=== PATIENT | male | born 1940 | race American Indian/Alaskan Native ===

== ENCOUNTER 2018-12-25 12:04 | Inpatient (IN) | payer MEDICARE ==
--- NOTE | 2018-12-25 12:27 | Cat Scan Report ---
PROCEDURE: CT HEAD/BRAIN WO CON TECHNIQUE: CT examination of the head without IV contrast HISTORY: neuro deficits <6hrs or sx present upon awakening COMPARISONS: None FINDINGS: Cerebrovascular atherosclerotic calcification is present in the skull base arteries. Chronic appearing lacunar infarct left basal ganglia. No acute air-fluid level visualized in the included air-filled sinuses. Bone windows demonstrate no acute fracture. There is ventricular and sulcal prominence compatible with global cerebrocortical atrophy. Low attenuation regions in the cerebral white matter, while nonspecific, are present and usually attr ibuted to chronic ischemic gliosis. It can occur secondary to the normal aging process, hypertension, or arterial sclerotic vascular dise ase. The differential includes demyelination in the appropriate clinical setting. The brain contains no mass, mass effect, hemorrhage, or acute infarct. There is no extra-axial intracranial bleed or brain bleed. There is no midline shift. IMPRESSION: No acute CVA, intracranial bleed, or brain mass Chronic appearing lacunar infarct left basal ganglia Cerebrovascular atherosclerosis This document is electronically signed by Conner Cancino MD., December 25 2018 12:25:15 PM ET
[2018-12-25 12:34] LABS: Basophils # (Auto) 0.1 K/mm3 (0.0-0.1); Basophils % (Auto) 1.1 % (0.0-1.8); Eosinophils % (Auto) 0.2 % (0.0-4.3); Hematocrit 44.4 % (35.5-45.6); Hemoglobin 15.4 gm/dl (11.8-15.2); Lymphocytes # (Auto) 1.9 K/mm3 (1.2-5.4); Lymphocytes % (Auto) 28.4 % (13.4-35.0); Mean Corpuscular HGB Conc 35 % (32-34); Mean Corpuscular Volume 94 fl (84-94); Monocytes # (Auto) 0.5 K/mm3 (0.0-0.8); Monocytes % (Auto) 7.5 % (0.0-7.3); Platelet Count 182 K/mm3 (140-440); Red Blood Count 4.72 M/mm3 (3.65-5.03); Red Cell Distribution Width 13.8 % (13.2-15.2)
[2018-12-25 12:44] LABS: INR 0.95 (0.87-1.13)
[2018-12-25 12:45] LABS: Thrombin Time 17.2 Sec. (15.1-19.6)
--- NOTE | 2018-12-25 12:46 | Emergency Department Report ---
ED Neuro Deficit HPI - General Stated Complaint: POSS CVA Time Seen by Provider: 12/25/18 12:14 - History of Present Illness Initial Comments: This is a 78-year-old man that was found in his truck. Apparently he is vomited his food. A stroke protocol was called by medics because neighbors stated that he (the patient) is not acting right. According to neighbors he has been "like this since last night". When I asked the medics exactly what the neighbors were referring to the stated they did not ask. They noted that the patient was not responding properly to them when they arrived. They did not identify focal weakness nor facial paresis, although the patient does have a grade 1 facial paresis on his arrival. Medics state that he is "speaking better now". Exactly what his stroke symptoms are and how acute ER is really uncertain. The patient himself is able to tell me that he "got hot in his truck". He does not seem to have complete recall of the episode. He has no history of stroke or seizure. He does realize that the medics took him to this facility for evaluation of a possible stroke. He is denying any lateralizing weakness. He is denying facial weakness or numbness. He denies any visual change. He denies headache. At this juncture the patient has a negative CT. I have discussed the case with the stroke neurologist at [facility] Dr. Bud Aragon. He agreed with CT angiography and stated that he would be available to read this study on the PACS if there are any delays here locally. -: unknown (either this morning or last night and recurrently this morning) Location: speech, left face History of same: No Place: home Severity: mild, moderate Improves With: time Worsens With: none On Anticoagulants: No Context: other (unknown onset) Associated Symptoms: nausea/vomiting Treatments Prior to Arrival: none - Related Data Allergies/Adverse Reactions: Allergies Allergy/AdvReac Type Severity Reaction Status Date / Time No Known Allergies Allergy Unverified 12/25/18 12:06 ED Review of Systems ROS: Stated complaint: POSS CVA Other details as noted in HPI Constitutional: denies: chills, fever Eyes: denies: eye pain, eye discharge, vision change ENT: denies: ear pain, throat pain Respiratory: denies: cough, shortness of breath, wheezing Cardiovascular: denies: chest pain, palpitations Endocrine: no symptoms reported Gastrointestinal: denies: abdominal pain, nausea, diarrhea Genitourinary: denies: urgency, dysuria Musculoskeletal: denies: back pain, joint swelling, arthralgia Skin: denies: rash, lesions Neurological: as per HPI. denies: headache, weakness, paresthesias Psychiatric: denies: anxiety, depression Hematological/Lymphatic: denies: easy bleeding, easy bruising ED Past Medical Hx - Past Medical History Hx Hypertension: Yes - Social History Substance Use Type: None ED Neuro Physical Exam - General General appearance: alert, in no apparent distress Suspected Stroke: Yes - Head Head exam: Present: atraumatic, normocephalic - Eye Eye exam: Present: normal appearance - ENT ENT exam: Present: mucous membranes moist, other (positive facial asymmetry left sided) - Neck Neck exam: Present: normal inspection - Respiratory Respiratory exam: Present: normal lung sounds bilaterally. Absent: respiratory distress - Cardiovascular Cardiovascular Exam: Present: regular rate, normal rhythm. Absent: systolic murmur, diastolic murmur, rubs, gallop - GI/Abdominal GI/Abdominal exam: Present: soft, normal bowel sounds. Absent: distended, tend erness, guarding, rebound, rigid - Rectal Rectal exam: Present: deferred - Extremities Exam Extremities exam: Present: normal inspection - Back Exam Back exam: Present: normal inspection - Neurological Exam Neurological exam: Present: alert, oriented X3 - NIHSS Assessment Interval: Baseline 1a. Level of Consciousness: alert/keenly responsive 1b. LOC Questions: answers both correctly 1c. LOC Commands: performs tasks correctly 2. Best Gaze: normal 3. Visual: no visual loss 4. Facial Palsy: minor paralysis 5b. Motor Arm Right: no drift 5a. Motor Arm Left: no drift 6a. Motor Leg Left: no drift 6b. Motor Leg Right: no drift 7. Limb Ataxia: absent 8. Sensory: normal 9. Best Language: no aphasia 10. Dysarthria: normal 11. Extinction/Inattention: no abnormality Total Score: 1 Stroke Severity: Minor Stroke - Psychiatric Psychiatric exam: Present: normal affect, normal mood - Skin Skin exam: Present: warm, dry, intact, normal color. Absent: rash ED Course Vital Signs 12/25/18 12:05 Temperature 98.3 F Pulse Rate 92 H Respiratory 18 Rate Blood Pressure 116/85 O2 Sat by Pulse 99 Oximetry - Reevaluation(s) Reevaluation #1: I spoke with teleneurology here. They're going to take a look at the patient as well. They agree the patient is not a TPA candidate as his symptoms are by history "since last night"at or about 9 PM. His NIH stroke score is 1 on reevaluation. 12/25/18 13:03 Reevaluation #2: CT has declined doing CT angiography because of the creatinine of 1.5. I will defer further medical decision making a the hospitalist and neurology consultation. 12/25/18 13:34 Reevaluation #3: Patient referred to Dr. Phillips. 12/25/18 14:49 - Lab Data Result diagrams: 12/25/18 12:23 12/25/18 12:19 Lab Results 12/25/18 12/25/18 12/25/18 Range/Units 12:19 12:23 12:24 WBC 6.8 (4.5-11.0) K/mm3 RBC 4.72 (3.65-5.03) M/mm3 Hgb 15.4 H (11.8-15.2) gm/dl Hct 44.4 (35.5-45.6) % MCV 94 (84-94) fl MCH 33 H (28-32) pg MCHC 35 H (32-34) % RDW 13.8 (13.2-15.2) % Plt Count 182 (140-440) K/mm3 Lymph % (Auto) 28.4 (13.4-35.0) % [place] % (Auto) 7.5 H (0.0-7.3) % Eos % (Auto) 0.2 (0.0-4.3) % Baso % (Auto) 1.1 (0.0-1.8) % Lymph # 1.9 (1.2-5.4) K/mm3 [place] # 0.5 (0.0-0.8) K/mm3 Eos # 0.0 (0.0-0.4) K/mm3 Baso # 0.1 (0.0-0.1) K/mm3 Seg Neutrophils % 62.8 (40.0-70.0) % Seg Neutrophils # 4.3 (1.8-7.7) K/mm3 PT 13.3 (12.2-14.9) Sec. INR 0.95 (0.87-1.13) Thrombin Time 17.2 (15.1-19.6) Sec. Sodium 141 (137-145) mmol/L Potassium 4.0 (3.6-5.0) mmol/L Chloride 104.0 (98-107) mmol/L Carbon Dioxide 23 (22-30) mmol/L Anion Gap 18 mmol/L BUN 22 H (9-20) mg/dL Creatinine 1.5 (0.8-1.5) mg/dL Estimated GFR 55 ml/min BUN/Creatinine Ratio 15 % Glucose 124 H (75-100) mg/dL Calcium 9.2 (8.4-10.2) mg/dL Troponin T < 0.010 (0.00-0.029) ng/mL Laboratory Results - last 24 hr 12/25/18 12/25/18 12/25/18 12:19 12:23 12:24 WBC 6.8 RBC 4.72 Hgb 15.4 H Hct 44.4 MCV 94 MCH 33 H MCHC 35 H RDW 13.8 Plt Count 182 Lymph % (Auto) 28.4 [place] % (Auto) 7.5 H Eos % (Auto) 0.2 Baso % (Auto) 1.1 Lymph # 1.9 [place] # 0.5 Eos # 0.0 Baso # 0.1 Seg Neutrophils % 62.8 Seg Neutrophils # 4.3 PT 13.3 INR 0.95 Thrombin Time 17.2 Sodium 141 Potassium 4.0 Chloride 104.0 Carbon Dioxide 23 Anion Gap 18 BUN 22 H Creatinine 1.5 Estimated GFR 55 BUN/Creatinine Ratio 15 Glucose 124 H Calcium 9.2 Troponin T < 0.010 - EKG Data -: EKG Interpreted by Mi Rate: normal Interpretation: other (first degree AV block no evidence for acute ischemia) - Radiology Data Radiology results: report reviewed (chest x-ray no acute process) FINDINGS: Cerebrovascular atherosclerotic calcification is present in the skull base arteries. Chronic appearing lacunar infarct left basal ganglia. No acute air-fluid level visualized in the included air-filled sinuses. Bone windows demonstrate no acute fracture. There is ventricular and sulcal prominence compatible with global cerebrocortical atrophy. Low attenuation regions in the cerebral white matter, while nonspecific, are present and usually attributed to chronic ischemic gliosis. It can occur secondary to the normal aging process, hypertension, or arterial sclerotic vascular disease. The differential includes demyelination in the appropriate clinical setting. The brain contains no mass, mass effect, hemorrhage, or acute infarct. There is no extra-axial intracranial bleed or brain bleed. There is no midline shift. IMPRESSION: No acute CVA, intracranial bleed, or brain mass Chronic appearing lacunar infarct left basal ganglia Cerebrovascular atherosclerosis Critical Care Time: Yes Critical care time in (mins) excluding proc time.: 60 Critical care attestation.: If time is entered above; I have spent that time in minutes in the direct care of this critically ill patient, excluding procedure time. ED Disposition Clinical Impression: TIA (transient ischemic attack), Renal insufficiency, mild Disposition: DC-09 OP ADMIT IP TO THIS HOSP Is pt being admited?: Yes Does the pt Need Aspirin: Yes Condition: Stable Referrals: PRIMARY CARE, [Primary Care Provider] - 3-5 Days Time of Disposition: 14:48
[2018-12-25 12:52] LABS: BUN/Creatinine Ratio 15; Blood Urea Nitrogen 22 mg/dL (9-20); Calcium 9.2 mg/dL (8.4-10.2); Hemolysis Index 4
[2018-12-25] MEDS ORDERED: ASPIRIN PO ONE (14:48)
--- NOTE | 2018-12-25 15:02 | XRay Report ---
PROCEDURE: XR CHEST 1V AP TECHNIQUE: AP portable view of the chest HISTORY: hypertension COMPARISONS: None FINDINGS: There is degenerative spondylosis of the thoracic spine. There is no pulmonary consolidation. No evidence of pleural effusion. No radiographically visible pneumothorax. Cardiac silhouette size is within normal limits. No radiographic evidence of vascular congestion. IMPRESSION: No radiographic evidence of definite acute pulmonary disease This document is electronically signed by Conner Cancino MD., December 25 2018 01:46:06 PM ET
--- NOTE | 2018-12-25 15:08 | Emergency Department Report ---
ED Neuro Deficit HPI - General Chief Complaint: Neuro Symptoms/Deficit Stated Complaint: POSS CVA Time Seen by Provider: 12/25/18 12:14 Source: EMS Mode of arrival: Stretcher Limitations: Physical Limitation - History of Present Illness Initial Comments: [facility] TeleStroke Metrics: LKW: Last night Door Time: 1204 [facility] Contacted: 1244 [facility] at Bedside: 1254 NIHSS: 1305 Decision on Alteplase: Not to give as his LKW time was yesterday. Interventional Candidate: Not a candidate as his symptoms are not consistent with a large vessel proximal occlusion. Chief Complaint: AMS HPI: Asked to see this patient in telemedicine consultation. ?Consultation was performed with assistance of ancillary / medical staff at bedside. ? Verbal consent to perform the examination with telemedicine was obtained. Patient agreed to proceed with the consultation. 78-year-old right-handed -[place] male who was brought to the ER by EMS after being found with altered mental status in his truck. Patient currently does not take any aspirin. According to the ER team, EMS had spoken with the neighbors and they noted that he was confused and not talking appropriately last night. Patient states that he was with them around 9 PM. He overall feels like he has had no issues. He recalls this morning having to start his truck, but noted a battery. At some point, EMS was called and the patient was found in his truck not responding or talking appropriately. By the time he came to the ER, he was back to his baseline. He was only noted to have a mild left facial droop. Head CT was negative. He denies any associated chest pain or headaches. He is never had this happen before. PMH: Hypertension SOC: Positive for tobacco abuse. Negative for alcohol abuse or illicit drug use. Patient lives alone. FMH: Negative for stroke. ROS: 13 point review of systems were reviewed with the patient, and are all negative with the exception of the aforementioned in the history of present illness. VS: Blood pressure 140/93, pulse 94, respiration 12, oxygen saturation 100% Exam: Patient is in no apparent distress. Patient appears as stated age. No obvious acute respiratory or cardiac distress. Patient is well groomed and well-nourished. 1a- LOC: Keenly responsive - 0 1b- LOC questions: Answers both questions correctly - 0 1c- LOC commands- Performs both tasks correctly- 0 2- Gaze: Normal; no gaze paresis or gaze deviation - 0 3- Visual Holman: normal, no Visual field deficit - 0 4- Facial movements: left facial palsy - 1 5- Upper limb motor - no drift - 0 6- Lower limb motor - no drift - 0 7- Limb Coordination: absent ataxia - 0 8- Sensory: no sensory loss - 0 9- Language - No aphasia - 0 10- Speech - No dysarthria -0 11- Neglect / Extinction - none found - 0 NIHSS score: 1 Diagnostic Data: WBC 6.8, hemoglobin 50.4, platelets 182, white elation studies within normal limits, sodium 141, potassium 4, BUN 22, creatinine 1.5, blood glucose 124 CT of the head showed no acute intracranial process. Medical Data Reviewed: 1.Data?reviewed include clinical labs, radiology,?and medical tests; 2.Tests?results discussed w/performing or interpreting physician; 3.Obtaining/reviewing old medical records;? 4.Obtaining?case history from another source;? 5.Independent?review of image, tracing, or specimen.? Medical Decision Making: - Extensive number of diagnosis or management options are considered below. - Extensive amount of complex data reviewed.?? - High risk of complication and/or morbidity or mortality are associated with differential diagnostic considerations below.? - There may be?uncertain?outcome and increased probability of prolonged functional impairment or high probability of severe prolonged functional impairment associated with some of these differential diagnosis.? Differential Diagnosis for Stroke: 1.?Cardioembolic?stroke? 2. Small vessel disease/lacune? 3. Thromboembolic, [id number] mechanism? 4.?Hypercoagulable?state-related infarct? 5. Transient ischemic attack? 6. Thrombotic mechanism, large artery disease? Assessment: 1. Acute encephalopathy. Possible stroke versus seizure. 2. Hypertension 3. Tobacco abuse Recommendations: Patient can be admitted to the hospital for further workup of his symptoms. Metabolic and infectious workup per primary team. Patient is getting a CTA of the head and neck currently. Check MRI of the brain to rule out any acute intracranial process. To consider an EEG to rule out subclinical seizure. Consult local neurology team to assist with evaluation and management. Continue supportive. Thank you for allowing [facility] to participate in the care of your patient. Please call me, Dr. Messer, with any questions at [phone]. Case discussed with the ER staff and Dr. Garcia. Critical Care notation: I was called to see this critical patient emergently. I personally evaluated this critical patient for acute stroke evaluation, and determining their eligibility for IV Alteplase and interventional therapies. I have spent approximately 14 minutes with the patient, including time at bedside, time discussing the case with other physicians, reviewing plan of care, and time independently reviewing the records and scans. Location: speech, left face History of same: No Place: home Severity: mild, moderate Improves With: time Worsens With: none On Anticoagulants: No Treatments Prior to Arrival: none - Related Data Allergies/Adverse Reactions: Allergies Allergy/AdvReac Type Severity Reaction Status Date / Time No Known Allergies Allergy Unverified 12/25/18 12:06 ED Review of Systems ROS: Stated complaint: POSS CVA Other details as noted in HPI Constitutional: denies: chills, fever Eyes: denies: eye pain, eye discharge, vision change ENT: denies: ear pain, throat pain Respiratory: denies: cough, shortness of breath, wheezing Cardiovascular: denies: chest pain, palpitations Endocrine: no symptoms reported Gastrointestinal: denies: abdominal pain, nausea, diarrhea Genitourinary: denies: urgency, dysuria Musculoskeletal: denies: back pain, joint swelling, arthralgia Skin: denies: rash, lesions Neurological: as per HPI. denies: headache, weakness, paresthesias Psychiatric: denies: anxiety, depression Hematological/Lymphatic: denies: easy bleeding, easy bruising ED Past Medical Hx - Past Medical History Hx Hypertension: Yes - Social History Substance Use Type: None ED Neuro Physical Exam - General Limitations: Physical Limitation General appearance: alert, in no apparent distress Suspected Stroke: Yes - NIHSS Assessment Interval: Baseline 1a. Level of Consciousness: alert/keenly responsive 1b. LOC Questions: answers both correctly 1c. LOC Commands: performs tasks correctly 2. Best Gaze: normal 3. Visual: no visual loss 4. Facial Palsy: minor paralysis 5b. Motor Arm Right: no drift 5a. Motor Arm Left: no drift 6a. Motor Leg Left: no drift 6b. Motor Leg Right: no drift 7. Limb Ataxia: absent 8. Sensory: normal 9. Best Language: no aphasia 10. Dysarthria: normal 11. Extinction/Inattention: no abnormality Total Score: 1 Stroke Severity: Minor Stroke ED Course Vital Signs 12/25/18 12:05 Temperature 98.3 F Pulse Rate 92 H Respiratory 18 Rate Blood Pressure 116/85 O2 Sat by Pulse 99 Oximetry - Lab Data Result diagrams: 12/25/18 12:23 12/25/18 12:19 Lab Results 12/25/18 12/25/18 12/25/18 Range/Units 12:19 12:23 12:24 WBC 6.8 (4.5-11.0) K/mm3 RBC 4.72 (3.65-5.03) M/mm3 Hgb 15.4 H (11.8-15.2) gm/dl Hct 44.4 (35.5-45.6) % MCV 94 (84-94) fl MCH 33 H (28-32) pg MCHC 35 H (32-34) % RDW 13.8 (13.2-15.2) % Plt Count 182 (140-440) K/mm3 Lymph % (Auto) 28.4 (13.4-35.0) % [place] % (Auto) 7.5 H (0.0-7.3) % Eos % (Auto) 0.2 (0.0-4.3) % Baso % (Auto) 1.1 (0.0-1.8) % Lymph # 1.9 (1.2-5.4) K/mm3 [place] # 0.5 (0.0-0.8) K/mm3 Eos # 0.0 (0.0-0.4) K/mm3 Baso # 0.1 (0.0-0.1) K/mm3 Seg Neutrophils % 62.8 (40.0-70.0) % Seg Neutrophils # 4.3 (1.8-7.7) K/mm3 PT 13.3 (12.2-14.9) Sec. INR 0.95 (0.87-1.13) Thrombin Time 17.2 (15.1-19.6) Sec. Sodium 141 (137-145) mmol/L Potassium 4.0 (3.6-5.0) mmol/L Chloride 104.0 (98-107) mmol/L Carbon Dioxide 23 (22-30) mmol/L Anion Gap 18 mmol/L BUN 22 H (9-20) mg/dL Creatinine 1.5 (0.8-1.5) mg/dL Estimated GFR 55 ml/min BUN/Creatinine Ratio 15 % Glucose 124 H (75-100) mg/dL Calcium 9.2 (8.4-10.2) mg/dL Troponin T < 0.010 (0.00-0.029) ng/mL Critical care attestation.: If time is entered above; I have spent that time in minutes in the direct care of this critically ill patient, excluding procedure time. ED Disposition Clinical Impression: Renal insufficiency, mild, Encephalopathy acute, TIA (transient ischemic attack) Disposition: OP ADMIT IP TO THIS HOSP Is pt being admited?: Yes Instructions: Self Care Measures After a Stroke (ED), Transient Ischemic Attack (ED) Referrals: PRIMARY CARE, [Primary Care Provider] - 3-5 Days Print Language: LITHUANIAN
--- NOTE | 2018-12-25 17:02 | History and Physical Report ---
History of Present Illness Date of examination: 12/25/18 Date of admission: 12/25/18 15:16 Chief complaint: Toes pains and unable to walk since last night History of present illness: Patient is a 78 yo man with a history of hypertension and tobacco dependency who presented with AMS, although he complains of bilateral throbbing, intermittent, mild, non radiating bilateral big toe pains and inability to walk since last night. The episode was intermittent but details are vague. According to the chart and sister herminio Krishnan, he was found in his truck, confused. He apparently vomited on himself. He is a poor historian, his recall of events is impairment. This is all new according to his family at bedside. He usually drives and full orientated. He is denying any focus weakness, headaches, facial weakness or numbness, visual change, headache, chest pains, syncope, fever, chills, abdominal pains. Teleneurology used, not candidate for tPA due to last time known normal is not known. PMH: as hpi PSH: Right TKR SH: 1/2 tobacco cigs/day, denies etoh or drug use, not , 1 daughter in [facility], lives alone, retired from [employer]: hypertension ROS: Constitutional: denies: fever ENT: denies: throat or neck pain Respiratory: denies: cough, shortness of breath Cardiovascular: denies: chest pain Endocrine: denies unexplained weight loss or gain Gastrointestinal: denies: abdominal pain, nausea Genitourinary: denies: dysuria Rectal: denies no incontinence, no bleeding, no itching, no discharge Musculoskeletal: denies swelling, myaglia, muscle weakness Skin: denies: rash Neurological: denies: headache Hematological/Lymphatic: denies: easy bleeding or easy bruising Allergic/Immunologic: no urticaria, no allergic rhinitis, no anaphylaxis Psych: denies sadness or hopelessness, SI/HI Medications and Allergies Allergies Allergy/AdvReac Type Severity Reaction Status Date / Time No Known Allergies Allergy Unverified 12/25/18 12:06 Exam - Physical Exam Narrative exam: GEN: WDWN, NAD, Awake, Alert, Orientated but poor 5 minute recall test HEENT: NCAT, EOMI, PERRL, OP Clear NECK: supple, no adenopathy, no thyromegaly, no JVD CVS/HEART: RRR, normal S1S2, pulses present bilaterally CHEST/LUNGS: CTA B, Symmetrical chest expansion, good air entry bilaterally GI/Abdomen: soft, NTND, good bowel sounds, no guarding or rebound /Bladder: no suprapubic tenderness, no CVA or paraspinal tenderness EXT/Skin: no c/c/e, no obvious rash MSK: FROM x 4 Neuro: CN 2-12 grossly intact, no new focal deficits Psych: calm - Constitutional Vitals: Temp Pulse Resp BP Pulse Ox 98.5 F 89 18 129/82 99 12/25/18 15:37 12/25/18 15:37 12/25/18 15:37 12/25/18 15:37 12/25/18 15:37 Results - Labs CBC & Chem 7: 12/25/18 12:23 12/25/18 12:19 Labs: Abnormal lab results 12/25/18 12/25/18 Range/Units 12:19 12:23 Hgb 15.4 H (11.8-15.2) gm/dl MCH 33 H (28-32) pg MCHC 35 H (32-34) % [place] % (Auto) 7.5 H (0.0-7.3) % BUN 22 H (9-20) mg/dL Glucose 124 H (75-100) mg/dL Assessment and Plan Patient is a 78 yo man with a history of hypertension and tobacco dependency who presented with AMS, although he complains of bilateral throbbing, intermittent, mild, non radiating bilateral big toe pains and inability to walk since last night. The episode was intermittent but details are vague. According to the chart and sister herminio Krishnan, he was found in his truck, confused. He apparently vomited on himself. He is a poor historian, his recall of events is impairment. This is all new according to his family at bedside. He usually drives and full orientated. He is denying any focus weakness, headaches, facial weakness or numbness, visual change, headache, chest pains, syncope, fever, chills, abdominal pains. Teleneurology used, not candidate for tPA due to last t walter known normal is not known. There was report of left facial asymmetry and possible slurred speech per EMS report that has resolved * CT head without contrast IMPRESSION: No acute CVA, intracranial bleed, or brain mass Chronic appearing lacunar infarct left basal ganglia Cerebrovascular atherosclerosis * pCXR IMPRESSION: No radiographic evidence of definite acute pulmonary disease -Acute encephalopathy. Possible TIA vs stroke versus seizure. Consult Neurology, use Stroke protocol -Bilateral big toe pains and Ambulatory dysfunction, resolved: Evaluate for stroke -?Nausea/vomiting: monitor closely, pt asking for food, use anti-emetics prn -ARF, vasomotor nephropathy suspected, no baseline known: monitor bmp closely, treat with IVF -Hypertension: continue antihypertensives (pt doesn't remember his 2 bp meds) -Tobacco dependency: budget counselor on stopping, offered nicotine patch -DVT prophylaxis: sq heparin -Home reconciliation not done, pt doesn't know medications or pharmacy
[2018-12-25] MEDS ORDERED: NORMODYNE IV PRN (17:08)
[2018-12-25] MEDS ORDERED: SENOKOT PO PRN (17:08)
[2018-12-25] MEDS ORDERED: TYLENOL PO PRN (17:08)
[2018-12-25] MEDS ORDERED: SODIUM CHLORIDE FLUSH SYRINGE 10 ML IV PRN (17:08)
[2018-12-25] MEDS ORDERED: ZOFRAN IV PRN (17:08)
[2018-12-25] MEDS ORDERED: ASPIRIN ONE (18:13)
--- NOTE | 2018-12-25 18:33 | Vascular Lab Report ---
PROCEDURE: VL CAROTID DUPLEX BILAT HISTORY: stroke FINDINGS: Real-time ultrasound of the cervical arterial vasculature was performed using grayscale and color Doppler images. These images demonstrate that peak systolic velocity in the right common carotid artery was 79 cm/s. In the internal carotid it was 41 cm/s and in the external carotid 103 cm/s. Flow in the vertebral ar holly was antegrade at 47 cm/s. The ratio of flow of the internal carotid to the common carotid was 0. 53 which is normal. On the left, peak systolic velocity common carotid artery was 93 cm/s. In the internal carotid it was 53 cm/s and in the external carotid 46 cm/s. Flow in the vertebral is antegrade at 36 cm/s. The rati o of flow of the internal carotid to the common carotid was 0.58 which is within normal limits. IMPRESSION: No stenosis of greater than 50% is seen in the cervical arterial vasculature This document is electronically signed by Emeka Rivera MD., December 25 2018 06:31:12 PM ET
--- NOTE | 2018-12-25 21:22 | Progress Note ---
Subjective Date of service: 12/25/18 Interval history: Thanks for consult the patient uis seen and definitely sounds like a stroke CT shows area in the left deep basal ganglia of extensive prior strokes mosrtly lacunar no blee noted advise stroke work up ie ECHO the carotid does not show occlusive disease of surgical significance labs reviewed ar basically OK he is very confusion and had mild delirium which is c/w the presenting hx will follow up Objective - Vital Sign Vital Signs - 12hr 12/25/18 12/25/18 12/25/18 12:05 12:52 13:53 Temperature 98.3 F 98.3 F Pulse Rate 92 H 88 89 Respiratory 18 18 18 Rate Blood Pressure 116/85 Blood Pressure 140/93 115/62 [Right] O2 Sat by Pulse 99 98 99 Oximetry 12/25/18 12/25/18 12/25/18 15:37 15:41 15:46 Temperature 98.5 F Pulse Rate 89 86 Respiratory 18 11 L 10 L Rate Blood Pressure 130/82 Blood Pressure 129/82 [Right] O2 Sat by Pulse 99 100 100 Oximetry 12/25/18 12/25/18 12/25/18 16:00 16:16 16:30 Temperature Pulse Rate 89 94 H 93 H Respiratory 21 14 12 Rate Blood Pressure 130/82 130/82 130/82 Blood Pressure [Right] O2 Sat by Pulse 98 99 100 Oximetry 12/25/18 12/25/18 12/25/18 16:46 17:00 17:16 Temperature Pulse Rate 96 H 90 90 Respiratory 17 21 18 Rate Blood Pressure 155/109 130/82 130/82 Blood Pressure [Right] O2 Sat by Pulse 100 100 99 Oximetry 12/25/18 12/25/18 12/25/18 17:30 17:46 18:00 Temperature Pulse Rate 84 84 83 Respiratory 12 17 11 L Rate Blood Pressure 132/85 123/86 123/86 Blood Pressure [Right] O2 Sat by Pulse 100 100 100 Oximetry - Laboratory Findings CBC and BMP: 12/25/18 12:23 12/25/18 12:19 Abnormal Lab Findings: Abnormal Labs 12/25/18 12/25/18 12:19 12:23 Hgb 15.4 H MCH 33 H MCHC 35 H [place] % (Auto) 7.5 H BUN 22 H Glucose 124 H
[2018-12-25] MEDS: PEPCID PO SCH (22:49)
[2018-12-25] MEDS: HABITROL TD SCH (22:50)
--- NOTE | 2018-12-26 02:39 | Consultation ---
HISTORY OF PRESENT ILLNESS: This is a 78-year-old black male that was admitted to [facility] on 12/25/2018. The patient presented to the Emergency Room with an onset of being found in his truck by neighbors. Apparently, he had vomiting his food, he has had confusion, was not acting right according to his neighbors and seemed to be not responding properly when they arrive. When he was evaluated in the Emergency Room, he did not have any focal paresis or any facial weakness, although the patient was thought to have some slurred speech. Medics, who initially picked him up, stated he was speaking better at the time of transport to the hospital. He is not clear exactly what his stroke symptoms were. When he was seen in the Emergency Room acutely, he do not describe exactly what happened, although he states he got hot in his truck and cannot recall what happened. When I am seeing him now, he has a very vague history. There are no family members present. He had gotten up earlier and had some problems with urinating on the floor and was quite confused. The patient does seem still be confused at this time. He had a creatinine of 1.5 and therefore, a CTA was not able to be done and the patient was not thought to be a TPA candidate given the fact he was not sure when exactly his symptoms came on. His electrolytes were checked. He had a creatinine of 1.4, glucose of 124, sodium of 141, potassium of 4.0 and the patient's BUN was slightly elevated at 22. Chest x-ray did not show any acute findings. My review of the head CT reveals atherosclerotic changes in the vessels, the base including the vertebrals. There is some movement artifact and there is a quite very clear cut infarct in the globus pallidus too on the left side, which is anterior and a small infarct in the medial globus pallidus, which are very chronic in appearance and there is a large area of white matter change in the left hemisphere adjacent to these areas of infarct in the globus pallidus. The cerebellum has normal appearance. Remainder of the CT scan does not show any evidence of any bleed or any other acute changes. On seeing the patient, he is alert, but very confused, unable to provide much of a history. He seems slightly agitated at times and is not able to follow many commands except very simple commands such as stay in bed. I cannot test his memory, although he does give me his name, does know he is in the hospital and he can follow simple commands at this point. I do not see any focal seizure activity. He does have a great degree of restlessness noted on examination, which at times with some tremulousness of the right arm. IMPRESSION: Prior history of acute stroke in the left hemisphere, chronic. He has no stenosis in his cervical arterial vasculature. He may have had a seizure. I certainly think that given his age, he has had prior strokes, may have some degree of dementia. I did review the radiology report of the CT and they describe as well the chronic infarcts in the left deep basal ganglia, which are confluent and certainly additional strokes in this region could produce confusion and dysarthria, particularly in the thalamus, which would lead to type of delirium. PLAN: MRI scan of brain, echocardiogram, possibility of early infection such as UTI should also be considered. JOB# [id number] ROSINA/KERRY
[2018-12-26 08:46] LABS: Hematocrit 41.8 % (35.5-45.6); Hemoglobin 14.3 gm/dl (11.8-15.2); Mean Corpuscular HGB Conc 34 % (32-34); Mean Corpuscular Volume 95 fl (84-94); Platelet Count 157 K/mm3 (140-440)
[2018-12-26 09:14] LABS: BUN/Creatinine Ratio 18; Blood Urea Nitrogen 21 mg/dL (9-20); Hemolysis Index 6; LDL Cholesterol,Direct 137 mg/dL (50-130)
[2018-12-26 09:27] LABS: Chol/HDL Ratio 4.04 %; HDL Cholesterol 45 mg/dL (40-59)
[2018-12-26] MEDS ORDERED: ASPIRIN PR SCH (10:00)
[2018-12-26] MEDS: PEPCID PO SCH ×2 (10:41→21:43)
[2018-12-26] MEDS: HABITROL TD SCH (10:42)
--- NOTE | 2018-12-26 11:19 | Progress Note ---
Subjective Date of service: 12/26/18 Interval history: see consultation note from prior evening suspect recurrent stroke based on the hsitory guillermo the neighbers who called EMs specific area in the left hemisphere of recurrent ischemia appears to have predicted recurrent Stroke MRI should be definitive Objective - Vital Sign Vital Signs - 12hr 12/26/18 12/26/18 02:35 09:39 Temperature 98.8 F Pulse Rate 88 Respiratory 20 Rate Blood Pressure 125/85 O2 Sat by Pulse 95 100 Oximetry - Laboratory Findings CBC and BMP: 12/26/18 07:57 12/26/18 07:57 Abnormal Lab Findings: Abnormal Labs 12/25/18 12/25/18 12/26/18 12:19 12:23 07:57 Hgb 15.4 H MCV 95 H MCH 33 H MCHC 35 H [place] % (Auto) 7.5 H BUN 22 H Glucose 124 H LDL Cholesterol Direct 12/26/18 07:57 Hgb MCV MCH MCHC [place] % (Auto) BUN 21 H Glucose LDL Cholesterol Direct 137 H
--- NOTE | 2018-12-26 11:33 | Progress Note ---
Assessment and Plan Assessment and plan: Patient is a 78 yo man with a history of hypertension and tobacco dependency who presented with AMS, although he complains of bilateral throbbing, intermittent, mild, non radiating bilateral big toe pains and inability to walk since last night. The episode was intermittent but details are vague. According to the chart and sister herminio Kirshnan, he was found in his truck, confused. He apparently vomited on himself. He is a poor historian, his recall of events is impairment. This is all new according to his family at bedside. He usually drives and full orientated. He is denying any focus weakness, headaches, facial weakness or numbness, visual change, headache, chest pains, syncope, fever, c hills, abdominal pains. Teleneurology used, not candidate for tPA due to last time known normal is not known. There was report of left facial asymmetry and possible slurred speech per EMS report that has resolved. * CT head without contrast IMPRESSION: No acute CVA, intracranial bleed, or brain mass Chronic appearing lacunar infarct left basal ganglia Cerebrovascular atherosclerosis * pCXR IMPRESSION: No radiographic evidence of definite acute pulmonary disease -Acute encephalopathy. Possible TIA vs stroke versus seizure. Neurology following, use Stroke protocol -Bilateral big toe pains and Ambulatory dysfunction, resolved: Evaluate for str roel - Nausea/vomiting, resolved: monitor closely, pt asking for food, use anti- emetics prn -ARF, vasomotor nephropathy suspected, no baseline known: treated with IVF, Cr went from 1.5 to 1.2, monitor bmp closely -Hypertension: continue antihypertensives (pt doesn't remember his 2 bp meds) -Tobacco dependency: staff counsel on stopping, offered nicotine patch -DVT prophylaxis: sq heparin -Home reconciliation not done, place a order for RN to obtain home medications, pt doesn't know medications or pharmacy New: Dyslipidemia, LDL 137: added Statin mri brain, echo pending. Carotid u/s unremarkable History Interval history: Patient was seen and examined. Follow-up on current diagnosis of AMS, improved some. Overnight uneventful. Patient denies any chest pain, shortness breath, nausea/vomiting or severe headaches. Imaging, nursing note, chart, labs and old chart reviewed. Discussed with patient. Hospitalist Physical - Physical exam Narrative exam: GEN: WDWN, NAD, Awake, Alert, Orientated but poor 5 minute recall test HEENT: NCAT, EOMI, PERRL, OP Clear NECK: supple, no adenopathy, no thyromegaly, no JVD CVS/HEART: RRR, normal S1S2, pulses present bilaterally CHEST/LUNGS: CTA B, Symmetrical chest expansion, good air entry bilaterally GI/Abdomen: soft, NTND, good bowel sounds, no guarding or rebound /Bladder: no suprapubic tenderness, no CVA or paraspinal tenderness EXT/Skin: no c/c/e, no obvious rash MSK: FROM x 4 Neuro: CN 2-12 grossly intact, no new focal deficits Psych: calm - Constitutional Vitals: Temp Pulse Resp BP Pulse Ox 98.8 F 88 20 125/85 100 12/26/18 02:35 12/26/18 02:35 12/26/18 02:35 12/26/18 02:35 12/26/18 09:39 Results - Labs CBC & Chem 7: 12/26/18 07:57 12/26/18 07:57 Labs: Laboratory Last Values WBC 5.1 K/mm3 (4.5-11.0) 12/26/18 07:57 RBC 4.40 M/mm3 (3.65-5.03) 12/26/18 07:57 Hgb 14.3 gm/dl (11.8-15.2) 12/26/18 07:57 Hct 41.8 % (35.5-45.6) 12/26/18 07:57 MCV 95 fl (84-94) H 12/26/18 07:57 MCH 32 pg (28-32) 12/26/18 07:57 MCHC 34 % (32-34) 12/26/18 07:57 RDW 14.0 % (13.2-15.2) 12/26/18 07:57 Plt Count 157 K/mm3 (140-440) 12/26/18 07:57 Lymph % (Auto) 28.4 % (13.4-35.0) 12/25/18 12:23 [place] % (Auto) 7.5 % (0.0-7.3) H 12/25/18 12:23 Eos % (Auto) 0.2 % (0.0-4.3) 12/25/18 12:23 Baso % (Auto) 1.1 % (0.0-1.8) 12/25/18 12:23 Lymph # 1.9 K/mm3 (1.2-5.4) 12/25/18 12:23 [place] # 0.5 K/mm3 (0.0-0.8) 12/25/18 12:23 Eos # 0.0 K/mm3 (0.0-0.4) 12/25/18 12:23 Baso # 0.1 K/mm3 (0.0-0.1) 12/25/18 12:23 Seg Neutrophils % 62.8 % (40.0-70.0) 12/25/18 12:23 Seg Neutrophils # 4.3 K/mm3 (1.8-7.7) 12/25/18 12:23 PT 13.3 Sec. (12.2-14.9) 12/25/18 12:24 INR 0.95 (0.87-1.13) 12/25/18 12:24 Thrombin Time 17.2 Sec. (15.1-19.6) 12/25/18 12:24 Sodium 140 mmol/L (137-145) 12/26/18 07:57 Potassium 4.1 mmol/L (3.6-5.0) 12/26/18 07:57 Chloride 103.2 mmol/L (98-107) 12/26/18 07:57 Carbon Dioxide 26 mmol/L (22-30) 12/26/18 07:57 Anion Gap 15 mmol/L 12/26/18 07:57 BUN 21 mg/dL (9-20) H 12/26/18 07:57 Creatinine 1.2 mg/dL (0.8-1.5) 12/26/18 07:57 Estimated GFR > 60 ml/min 12/26/18 07:57 BUN/Creatinine Ratio 18 % 12/26/18 07:57 Glucose 94 mg/dL (75-100) 12/26/18 07:57 Calcium 9.0 mg/dL (8.4-10.2) 12/26/18 07:57 Troponin T < 0.010 ng/mL (0.00-0.029) 12/25/18 12:19 Triglycerides 97 mg/dL (2-149) 12/26/18 07:57 Cholesterol 182 mg/dL (50-199) 12/26/18 07:57 LDL Cholesterol Direct 137 mg/dL (50-130) H 12/26/18 07:57 HDL Cholesterol 45 mg/dL (40-59) 12/26/18 07:57 Cholesterol/HDL Ratio 4.04 % 12/26/18 07:57 Active Medications - Current Medications Current Medications: Generic Name Dose Route Start Last Admin Trade Name Freq PRN Reason Stop Dose Admin Acetaminophen 650 mg 12/25/18 17:08 Tylenol PO Q4H PRN Pain, Mild (1-3) Aspirin 300 mg 12/26/18 10:00 Aspirin UT QDAY ANTONI Atorvastatin Calcium 40 mg 12/25/18 22:00 12/25/18 22:50 Lipitor PO 40 mg QHS ANTONI Administration Famotidine 20 mg 12/25/18 22:00 12/26/18 10:41 Pepcid PO 20 mg BID ANTONI Administration Heparin Sodium (Porcine) 5,000 unit 12/26/18 17:11 Heparin SUB-Q Q12HR [facility] Labetalol HCl 10 mg 12/25/18 17:08 Normodyne IV Q5MIN PRN to maintain SBP < 180 Nicotine 21 mg 12/25/18 18:00 12/26/18 10:42 Habitrol TD 21 mg QDAY ANTONI Administration Ondansetron HCl 4 mg 12/25/18 17:08 Zofran IV Q8H PRN Nausea And Vomiting Senna 8.6 mg 12/25/18 17:08 Senokot PO Q12H PRN Laxative Effect Sodium Chloride 10 ml 12/25/18 17:08 Sodium Chloride Flush Syringe 10 Ml IV PRN PRN LINE FLUSH
[2018-12-26] MEDS: HEPARIN SUB-Q SCH ×2 (18:59→21:42)
[2018-12-27 06:31] LABS: Hematocrit 46.9 % (35.5-45.6); Hemoglobin 16.1 gm/dl (11.8-15.2); Mean Corpuscular HGB Conc 34 % (32-34); Mean Corpuscular Volume 94 fl (84-94); Platelet Count 189 K/mm3 (140-440); Red Blood Count 5.01 M/mm3 (3.65-5.03); Red Cell Distribution Width 13.5 % (13.2-15.2)
[2018-12-27 06:46] LABS: BUN/Creatinine Ratio 15; Blood Urea Nitrogen 17 mg/dL (9-20); Calcium 9.5 mg/dL (8.4-10.2); Hemolysis Index 15
[2018-12-27] MEDS: HABITROL TD SCH (12:03)
[2018-12-27] MEDS: PEPCID PO SCH ×2 (12:03→22:55)
[2018-12-27] MEDS: HEPARIN SUB-Q SCH ×2 (13:04→22:55)
[2018-12-27] MEDS ORDERED: ATIVAN IV ONE (15:12)
--- NOTE | 2018-12-27 16:25 | Progress Note ---
Assessment and Plan Assessment and plan: Patient is a 78 yo man with a history of hypertension and tobacco dependency who presented with AMS, although he complains of bilateral throbbing, intermittent, mild, non radiating bilateral big toe pains and inability to walk since last night. The episode was intermittent but details are vague. According to the chart and sister Ariella, herminio Gallardo, he was found in his truck, confused. He apparently vomited on himself. He is a poor historian, his recall of events is impairment. This is all new according to his family at bedside. He usually drives and full orientated. He is denying any focus weakness, headaches, facial weakness or numbness, visual change, headache, chest pains, syncope, fever, chills, abdominal pains. Teleneurology used, not candidate for tPA due to last time known normal is not known. There was report of left facial asymmetry and possible slurred speech per EMS report that has resolved. * CT head without contrast IMPRESSION: No acute CVA, intracranial bleed, or brain mass Chronic appearing lacunar infarct left basal ganglia Cerebrovascular atherosclerosis * pCXR IMPRESSION: No radiographic evidence of definite acute pulmonary disease -Acute encephalopathy. Possible TIA vs stroke versus seizure. Neurology following, use Stroke protocol -Bilateral big toe pains and Ambulatory dysfunction, resolved: Evaluate for st roke - Nausea/vomiting, resolved: monitor closely, pt asking for food, use anti- emetics prn -ARF, vasomotor nephropathy suspected, no baseline known: treated with IVF, Cr went from 1.5 to 1.2, monitor bmp closely -Hypertension: continue antihypertensives (pt doesn't remember his 2 bp meds) -Tobacco dependency: teacher counselor on stopping, offered nicotine patch -DVT prophylaxis: sq heparin -Home reconciliation not done, place a order for RN to obtain home medications, pt doesn't know medications or pharmacy New: Dyslipidemia, LDL 137: added Statin mri brain, echo pending. Iv ativan had to be used Carotid u/s unremarkable needs SNF, he lives alone. History Interval history: Patient was seen and examined. Follow-up on current diagnosis of AMS, improved some. Overnight uneventful. Patient denies any chest pain, shortness breath, nausea/vomiting or severe headaches. Imaging, nursing note, chart, labs and old chart reviewed. Discussed with patient. Hospitalist Physical - Physical exam Narrative exam: GEN: WDWN, NAD, Awake, Alert, Orientated but poor 5 minute recall test HEENT: NCAT, EOMI, PERRL, OP Clear NECK: supple, no adenopathy, no thyromegaly, no JVD CVS/HEART: RRR, normal S1S2, pulses present bilaterally CHEST/LUNGS: CTA B, Symmetrical chest expansion, good air entry bilaterally GI/Abdomen: soft, NTND, good bowel sounds, no guarding or rebound /Bladder: no suprapubic tenderness, no CVA or paraspinal tenderness EXT/Skin: no c/c/e, no obvious rash MSK: FROM x 4 Neuro: CN 2-12 grossly intact, no new focal deficits Psych: calm - Constitutional Vitals: Temp Pulse Resp BP Pulse Ox 98.7 F 97 H 18 140/81 94 12/27/18 13:41 12/27/18 13:41 12/27/18 13:41 12/27/18 13:41 12/27/18 13:41 Results - Labs CBC & Chem 7: 12/27/18 05:53 12/27/18 05:53 Labs: Laboratory Last Values WBC 6.4 K/mm3 (4.5-11.0) 12/27/18 05:53 RBC 5.01 M/mm3 (3.65-5.03) 12/27/18 05:53 Hgb 16.1 gm/dl (11.8-15.2) H 12/27/18 05:53 Hct 46.9 % (35.5-45.6) H 12/27/18 05:53 MCV 94 fl (84-94) 12/27/18 05:53 MCH 32 pg (28-32) 12/27/18 05:53 MCHC 34 % (32-34) 12/27/18 05:53 RDW 13.5 % (13.2-15.2) 12/27/18 05:53 Plt Count 189 K/mm3 (140-440) 12/27/18 05:53 Lymph % (Auto) 28.4 % (13.4-35.0) 12/25/18 12:23 [place] % (Auto) 7.5 % (0.0-7.3) H 12/25/18 12:23 Eos % (Auto) 0.2 % (0.0-4.3) 12/25/18 12:23 Baso % (Auto) 1.1 % (0.0-1.8) 12/25/18 12:23 Lymph # 1.9 K/mm3 (1.2-5.4) 12/25/18 12:23 [place] # 0.5 K/mm3 (0.0-0.8) 12/25/18 12:23 Eos # 0.0 K/mm3 (0.0-0.4) 12/25/18 12:23 Baso # 0.1 K/mm3 (0.0-0.1) 12/25/18 12:23 Seg Neutrophils % 62.8 % (40.0-70.0) 12/25/18 12:23 Seg Neutrophils # 4.3 K/mm3 (1.8-7.7) 12/25/18 12:23 PT 13.3 Sec. (12.2-14.9) 12/25/18 12:24 INR 0.95 (0.87-1.13) 12/25/18 12:24 Thrombin Time 17.2 Sec. (15.1-19.6) 12/25/18 12:24 Sodium 140 mmol/L (137-145) 12/27/18 05:53 Potassium 4.1 mmol/L (3.6-5.0) 12/27/18 05:53 Chloride 100.6 mmol/L (98-107) 12/27/18 05:53 Carbon Dioxide 27 mmol/L (22-30) 12/27/18 05:53 Anion Gap 17 mmol/L 12/27/18 05:53 BUN 17 mg/dL (9-20) 12/27/18 05:53 Creatinine 1.1 mg/dL (0.8-1.5) 12/27/18 05:53 Estimated GFR > 60 ml/min 12/27/18 05:53 BUN/Creatinine Ratio 15 % 12/27/18 05:53 Glucose 104 mg/dL (75-100) H 12/27/18 05:53 POC Glucose 68 (70-105) L 12/26/18 22:37 Calcium 9.5 mg/dL (8.4-10.2) 12/27/18 05:53 Troponin T < 0.010 ng/mL (0.00-0.029) 12/25/18 12:19 Triglycerides 97 mg/dL (2-149) 12/26/18 07:57 Cholesterol 182 mg/dL (50-199) 12/26/18 07:57 LDL Cholesterol Direct 137 mg/dL (50-130) H 12/26/18 07:57 HDL Cholesterol 45 mg/dL (40-59) 12/26/18 07:57 Cholesterol/HDL Ratio 4.04 % 12/26/18 07:57 Active Medications - Current Medications Current Medications: Generic Name Dose Route Start Last Admin Trade Name Freq PRN Reason Stop Dose Admin Acetaminophen 650 mg 12/25/18 17:08 Tylenol PO Q4H PRN Pain, Mild (1-3) Atorvastatin Calcium 40 mg 12/25/18 22:00 12/26/18 21:43 Lipitor PO 40 mg QHS ANTONI Administration Famotidine 20 mg 12/25/18 22:00 12/27/18 12:03 Pepcid PO 20 mg BID ANTONI Administration Heparin Sodium (Porcine) 5,000 unit 12/26/18 17:11 12/27/18 13:04 Heparin SUB-Q 5,000 unit Q12HR ANTONI Administration Labetalol HCl 10 mg 12/25/18 17:08 Normodyne IV Q5MIN PRN to maintain SBP < 180 Nicotine 21 mg 12/25/18 18:00 12/27/18 12:03 Habitrol TD 21 mg QDAY ANTONI Administration Ondansetron HCl 4 mg 12/25/18 17:08 Zofran IV Q8H PRN Nausea And Vomiting Senna 8.6 mg 12/25/18 17:08 Senokot PO Q12H PRN Laxative Effect Sodium Chloride 10 ml 12/25/18 17:08 Sodium Chloride Flush Syringe 10 Ml IV PRN PRN LINE FLUSH
--- NOTE | 2018-12-27 16:59 | Progress Note ---
Subjective Date of service: 12/27/18 Interval history: cme by to check thwe MRI/ MRA however the images just now being loaded into system will leave report when I can review all images and provide coherent report Thanks Objective - Vital Sign Vital Signs - 12hr 12/27/18 12/27/18 12/27/18 07:51 10:00 13:41 Temperature 97.4 F L 98.7 F Pulse Rate 88 97 H Respiratory 18 18 Rate Blood Pressure 154/92 140/81 O2 Sat by Pulse 95 99 94 Oximetry - Laboratory Findings CBC and BMP: 12/27/18 05:53 12/27/18 05:53 Abnormal Lab Findings: Abnormal Labs 12/25/18 12/25/18 12/26/18 12:19 12:23 07:57 Hgb 15.4 H Hct MCV 95 H MCH 33 H MCHC 35 H [place] % (Auto) 7.5 H BUN 22 H Glucose 124 H POC Glucose LDL Cholesterol Direct 12/26/18 12/26/18 12/27/18 07:57 22:37 05:53 Hgb 16.1 H Hct 46.9 H MCV MCH MCHC [place] % (Auto) BUN 21 H Glucose POC Glucose 68 L LDL Cholesterol Direct 137 H 12/27/18 05:53 Hgb Hct MCV MCH MCHC [place] % (Auto) BUN Glucose 104 H POC Glucose LDL Cholesterol Direct
[2018-12-28 06:08] LABS: Hematocrit 47.8 % (35.5-45.6); Hemoglobin 15.9 gm/dl (11.8-15.2); Mean Corpuscular HGB Conc 33 % (32-34); Mean Corpuscular Volume 95 fl (84-94); Platelet Count 186 K/mm3 (140-440); Red Blood Count 5.04 M/mm3 (3.65-5.03); Red Cell Distribution Width 13.9 % (13.2-15.2)
[2018-12-28 06:36] LABS: BUN/Creatinine Ratio 16; Blood Urea Nitrogen 19 mg/dL (9-20); Calcium 9.7 mg/dL (8.4-10.2); Hemolysis Index 33
--- NOTE | 2018-12-28 08:12 | Magnetic Resonance Report ---
MRA HEAD WITHOUT CONTRAST: 12/27/18 CLINICAL: Stroke. TECHNIQUE: Axial 3-D [id number] MR angiography of the [place] with review of axial source images. FINDINGS: No blood flow in the right middle cerebral artery. Normal distal ICAs. The [place] is intact and the right HELEN fills from the left. No aneurysm or high-grade stenoses identified. The basilar and vertebral arteries are intact. 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
[2018-12-28] MEDS: HEPARIN SUB-Q SCH ×2 (09:12→22:15)
[2018-12-28] MEDS: ASPIRIN PO SCH (09:12)
[2018-12-28] MEDS: PEPCID PO SCH ×2 (09:12→22:15)
[2018-12-28] MEDS: HABITROL TD SCH (09:13)
--- NOTE | 2018-12-28 09:23 | Progress Note ---
Assessment and Plan Patient is a 78 yo man with a history of hypertension and tobacco dependency who presented with AMS, although he complains of bilateral throbbing, intermittent, mild, non radiating bilateral big toe pains and inability to walk since last n ight. The episode was intermittent but details are vague. According to the chart and sister Ariella, herminio Gallardo, he was found in his truck, confused. He apparently vomited on himself. He is a poor historian, his recall of events is impairment. This is all new according to his family at bedside. He usually drives and full orientated. He is denying any focus weakness, headaches, facial weakness or numbness, visual change, headache, chest pains, syncope, fever, chills, abdominal pains. Teleneurology used, not candidate for tPA due to last time known normal is not known. There was report of left facial asymmetry and possible slurred speech per EMS report that has resolved. * CT head without contrast IMPRESSION: No acute CVA, intracranial bleed, or brain mass Chronic appearing lacunar infarct left basal ganglia Cerebrovascular atherosclerosis * pCXR IMPRESSION: No radiographic evidence of definite acute pulmonary disease -Acute encephalopathy. Possible TIA vs stroke versus seizure. Neurology following, use Stroke protocol -Bilateral big toe pains and Ambulatory dysfunction, resolved: Evaluate for stroke - Nausea/vomiting, resolved: monitor closely, pt asking for food, use anti- emetics prn -ARF, vasomotor nephropathy suspected, no baseline known: treated with IVF, Cr went from 1.5 to 1.2, monitor bmp closely -Hypertension: continue antihypertensives (pt doesn't remember his 2 bp meds) -Tobacco dependency: elder counselor on stopping, offered nicotine patch -DVT prophylaxis: sq heparin -Home reconciliation not done, place a order for RN to obtain home medications, pt doesn't know medications or pharmacy New: Dyslipidemia, LDL 137: added Statin mri brain, echo pending. Iv ativan had to be used Carotid u/s unremarkable needs SNF, he lives alone. History Interval history: Patient was seen and examined. Follow-up on current diagnosis of AMS, improved some. Overnight uneventful. Patient denies any chest pain, shortness breath, nausea/vomiting or severe headaches. Imaging, nursing note, chart, labs and old chart reviewed. Discussed with patient. Hospitalist Physical - Physical exam Narrative exam: GEN: WDWN, NAD, Awake, Alert, Orientated but poor 5 minute recall test HEENT: NCAT, EOMI, PERRL, OP Clear NECK: supple, no adenopathy, no thyromegaly, no JVD CVS/HEART: RRR, normal S1S2, pulses present bilaterally CHEST/LUNGS: CTA B, Symmetrical chest expansion, good air entry bilaterally GI/Abdomen: soft, NTND, good bowel sounds, no guarding or rebound /Bladder: no suprapubic tenderness, no CVA or paraspinal tenderness EXT/Skin: no c/c/e, no obvious rash MSK: FROM x 4 Neuro: CN 2-12 grossly intact, no new focal deficits Psych: calm Subjective Date of service: 12/28/18 Objective - Constitutional Vitals: Vital Signs - 12hr 12/27/18 12/28/18 12/28/18 23:34 02:22 07:21 Temperature 98.1 F 98.5 F Pulse Rate 82 95 H Respiratory 18 18 Rate Blood Pressure 155/93 159/91 O2 Sat by Pulse 99 100 95 Oximetry - Labs CBC & Chem 7: 12/28/18 05:35 12/28/18 05:35 Labs: Abnormal lab results 12/28/18 12/28/18 Range/Units 05:35 05:35 RBC 5.04 H (3.65-5.03) M/mm3 Hgb 15.9 H (11.8-15.2) gm/dl Hct 47.8 H (35.5-45.6) % MCV 95 H (84-94) fl Chloride 97.0 L (98-107) mmol/L Glucose 102 H (75-100) mg/dL
[2018-12-28] MEDS ORDERED: ATIVAN IV NR (14:04)
--- NOTE | 2018-12-28 15:49 | Progress Note ---
Subjective Date of service: 12/28/18 Interval history: cleared foer disxharge at this point can go to rehab patient will not cooperate or consent for full MRI the mRA is sufficient for Dx therefore can go to rehab Objective - Vital Sign Vital Signs - 12hr 12/28/18 12/28/18 12/28/18 07:21 09:57 14:00 Temperature 98.5 F 98.1 F Pulse Rate 95 H 109 H Respiratory 18 18 Rate Blood Pressure 159/91 137/89 O2 Sat by Pulse 95 98 97 Oximetry - Laboratory Findings CBC and BMP: 12/28/18 05:35 12/28/18 05:35 Abnormal Lab Findings: Abnormal Labs 12/25/18 12/25/18 12/26/18 12:19 12:23 07:57 RBC Hgb 15.4 H Hct MCV 95 H MCH 33 H MCHC 35 H [place] % (Auto) 7.5 H Chloride BUN 22 H Glucose 124 H POC Glucose LDL Cholesterol Direct 12/26/18 12/26/18 12/27/18 07:57 22:37 05:53 RBC Hgb 16.1 H Hct 46.9 H MCV MCH MCHC [place] % (Auto) Chloride BUN 21 H Glucose POC Glucose 68 L LDL Cholesterol Direct 137 H 12/27/18 12/28/18 12/28/18 05:53 05:35 05:35 RBC 5.04 H Hgb 15.9 H Hct 47.8 H MCV 95 H MCH MCHC [place] % (Auto) Chloride 97.0 L BUN Glucose 104 H 102 H POC Glucose LDL Cholesterol Direct
--- NOTE | 2018-12-28 15:54 | Discharge Summary ---
Providers - Providers Date of Admission: 12/25/18 15:16 Date of discharge: 12/29/18 Attending physician: ITZ BRANNON 12/25/18 12:54 Speech Therapy Evaluation and Treat [CONS] Stat Reason For Exam: delayed swallowing 12/25/18 17:08 Consult to Case Management [CONS] Routine Services Needed at Discharge: Supervisor Winter Consult to Dietitian/Nutrition [CONS] Routine Physician Instructions: Reason For Exam: Reason for Consult: Nutrition Recommendations Reason for Consult: Diet education Occupational Therapy Evaluate and Treat [CONS] Routine Comment: Reason For Exam: Neuro deficits Physical Therapy Evaluation and Treat [CONS] Routine Comment: Reason For Exam: Neuro deficits 12/25/18 17:12 Consult to Physician [CONS] Routine Comment: called answ. serv. .aashish Consulting Provider: ALONDRA PEREZ Physician Instructions: Reason For Exam: Evaulate for stroke Primary care physician: HAND REAMER Hospitalization Reason for admission: AMS Condition: Stable Hospital course: Brief history: Patient is a 78 yo man with a history of hypertension and tobacco dependency who presented with AMS, although he complains of bilateral throbbing, intermittent, mild, non radiating bilateral big toe pains and inability to walk for one day. According to the chart and sister herminio Krishnan, he was found in his truck, confused. He apparently vomited on himself and cannot recall of events completely. In the ER, Teleneurology used, not candidate for tPA due to last time known normal is not known. There was report of left facial asymmetry and possible slurred speech per EMS report that has resolved. He was then admitted for further evaluation and management. * CT head without contrast IMPRESSION: No acute CVA, intracranial bleed, or brain mass Chronic appearing lacunar infarct left basal ganglia Cerebrovascular atherosclerosis * pCXR IMPRESSION: No radiographic evidence of definite acute pulmonary disease * MRA neck - right MCA occlusion, * MRI brain : Acute right frontoparietal subcortical white matter infarct * Carotid u/s unremarkable * 2 D echo - EF 50-55% Discharge diagnosis: /Acute encephalopathy. likely from acute CVA /Acute right MCA CVA, treat with aspirin, statin, placed on stroke protocol. Neurology cleared for discharge /Bilateral big toe pains and Ambulatory dysfunction, resolved: likely from gout- ? will hold off treatment as it resolved now /Nausea/vomiting, resolved: tolerating diet, used anti-emetics prn /ARF, vasomotor nephropathy suspected, no baseline known: treated with IVF, Cr went from 1.5 to 1.2, /Dyslipidemia, LDL 137: added Statin /Hypertension: continue current antihypertensives (pt doesn't remember his 2 bp meds) /Tobacco dependency: counseled on stopping, offered nicotine patch /DVT prophylaxis: sq heparin Hospitalist Physical GEN: WDWN, NAD, Awake, Alert, Orientated but poor 5 minute recall test HEENT: NCAT, EOMI, PERRL, OP Clear NECK: supple, no adenopathy, no thyromegaly, no JVD CVS/HEART: RRR, normal S1S2, pulses present bilaterally CHEST/LUNGS: CTA B, Symmetrical chest expansion, good air entry bilaterally GI/Abdomen: soft, NTND, good bowel sounds, no guarding or rebound /Bladder: no suprapubic tenderness, no CVA or paraspinal tenderness EXT/Skin: no c/c/e, no obvious rash MSK: FROM x 4 Neuro: CN 2-12 grossly intact, no new focal deficits Psych: calm Disposition: DC/TX-06 HOME UNDER [facility] Time spent for discharge: 34 minutes Core Measure Documentation - Palliative Care Palliative Care/ Comfort Measures: Not Applicable - Core Measures Any of the following diagnoses?: stroke - Stroke Discharge Requirements Statin for LDL = or >70 mg/dl on DC: Yes Anticoag for atrial fib/atrial flutter: Not Applicable Antithrombotic for ischemic stroke: Yes Exam - Constitutional Vitals: Temp Pulse Resp BP Pulse Ox 98.1 F 109 H 18 137/89 97 12/28/18 14:00 12/28/18 14:00 12/28/18 14:00 12/28/18 14:00 12/28/18 14:00 Plan Activity: fall precautions Weight Bearing Status: Weight Bear as Tolerated Diet: low fat, low salt Follow up with: PRIMARY CARE, [Primary Care Provider] - 3-5 Days Prescriptions: Aspirin EC [Aspirin Enteric Coated TAB] 81 mg PO QDAY #30 tablet.
--- NOTE | 2018-12-28 20:26 | Magnetic Resonance Report ---
PROCEDURE: MR BRAIN WO CON HISTORY: stroke FINDINGS: MRI of the brain was performed using sagittal T1, axial diffusion, axial T2*gradient echo, axial T2, axial FLAIR, axial T1 and coronal FLAIR images. These images demonstrate multiple small infarcts within the right frontoparietal subcortical white ma tter, B1000 diffusion images 22-23. Altogether, these infarcts involve a region measuring approximate ly 5.0 x 1.0 cm although in between the small infarcts there are portions of the right frontoparietal subcortical white matter which are noninfarcted. There is no acute transcortical infarct. No midline shift or mass effect is seen. There is an old left periventricular white matter lacunar infarct, 0.8 cm. There are chronic-appearin g small vessel ischemic white matter changes in subcortical and periventricular white matter. There are normal flow voids in the basilar artery and both internal carotid arteries. The mastoid air cells and middle ears appear clear. There is a right maxillary polyp versus mucous re tention cyst. IMPRESSION: Acute right frontoparietal subcortical white matter infarct This document is electronically signed by Emeka Rivera MD., December 28 2018 08:24:41 PM ET
--- NOTE | 2018-12-28 21:05 | Event Note ---
Date: 12/28/18 Went to see patient in room 245 prior to admission to acute rehab and was notified by RN that she was just alerted to a new infarct from Brain MRI performed today and she was calling primary team for further orders. Patient is currently on secondary stroke prevention. Defer to primary team / neurology decision to adjust medications and provide further workup. Will defer admission to acute rehab currently until he is stable from this event. Look to admit in next few days if he is stabilized.
--- NOTE | 2018-12-28 22:21 | Event Note ---
Date: 12/28/18 Call received from patient's nurse to request to hold discharge for tonight. According to patient's nurse, patient is requesting to stay because she does not have transportation to home, her transportation is unable to pick her up tonight, nor does she have someone to stay with the at home. Moreover a report of patient's MRI showing a subcortical white matter infarct in the frontoperiatrial lobe was reviewed, patient was already seen by neurology who cleared her for discharge to the rehabilitation.
[2018-12-29 03:17] VITALS: BP 176/101
--- NOTE | 2018-12-29 07:58 | Consultation ---
HISTORY OF PRESENT ILLNESS: This is a 78-year-old black male who presented to [facility] after being found poorly responsive and not speaking well. He had evidence on his initial CT scan of the head showing a large area of confluent infarctions in the left thalamus and left internal capsule involving the deep white matter. A subsequent MRA of the brain showed occlusive disease of the right middle cerebral artery. According to the patient, he has had an ischemic stroke producing his confusion. Medical therapy is recommended aspirin, statin, and blood pressure control. The patient is not a candidate for endovascular studies because of the location of the occlusion of the right middle cerebral artery. At this point, I spoke with Dr. Small, the patient can be discharged to a rehab center. He is clinically stable at this point. JOB# [id number] ROSINA/KERRY
[2018-12-29] MEDS: ASPIRIN PO SCH (09:27)
[2018-12-29] MEDS: HABITROL TD SCH (09:27)
[2018-12-29] MEDS: HEPARIN SUB-Q SCH (09:27)
[2018-12-29] MEDS: PEPCID PO SCH (09:27)
--- NOTE | 2018-12-29 13:38 | Progress Note ---
Subjective Date of service: 12/29/18 Interval history: I went over the MRI and want to update the note there is know total occlusion of the right MCA and the MRI shows limited infarct in the same vascular territory this is mild ischemic infarct of chronic age suspect occurred prior to incident where he was confused at home- patient has reached MHB abd has stable neuro state he is still claered for subaciute rehab center placment as this can be safely treated medically and is stable condition Objective - Vital Sign Vital Signs - 12hr 12/29/18 12/29/18 02:33 10:00 Temperature 98.7 F Respiratory 20 Rate Blood Pressure 176/101 O2 Sat by Pulse 98 Oximetry - Laboratory Findings CBC and BMP: 12/28/18 05:35 12/28/18 05:35 Abnormal Lab Findings: Abnormal Labs 12/25/18 12/25/18 12/26/18 12:19 12:23 07:57 RBC Hgb 15.4 H Hct MCV 95 H MCH 33 H MCHC 35 H [place] % (Auto) 7.5 H Chloride BUN 22 H Glucose 124 H POC Glucose LDL Cholesterol Direct 12/26/18 12/26/18 12/27/18 07:57 22:37 05:53 RBC Hgb 16.1 H Hct 46.9 H MCV MCH MCHC [place] % (Auto) Chloride BUN 21 H Glucose POC Glucose 68 L LDL Cholesterol Direct 137 H 12/27/18 12/28/18 12/28/18 05:53 05:35 05:35 RBC 5.04 H Hgb 15.9 H Hct 47.8 H MCV 95 H MCH MCHC [place] % (Auto) Chloride 97.0 L BUN Glucose 104 H 102 H POC Glucose LDL Cholesterol Direct
--- NOTE | 2018-12-29 13:51 | Progress Note ---
Assessment and Plan /Acute encephalopathy -delirium. likely from acute CVA, now at baseline /Acute right MCA CVA, treat with aspirin, statin, placed on stroke protocol. Neurology cleared for discharge - He did have another MRI brain today which showed acute right frontoparietal subcortical white matter infarct - He was denied by the acute rehab until neurology makes comment on that /Bilateral big toe pains and Ambulatory dysfunction, resolved: likely from gout- ? will hold off treatment as it resolved now /Nausea/vomiting, resolved: tolerating diet, used anti-emetics prn /ARF, vasomotor nephropathy suspected, no baseline known: treated with IVF, Cr went from 1.5 to 1.2, /Dyslipidemia, LDL 137: added Statin /Hypertension: continue current antihypertensives (pt doesn't remember his 2 bp meds) /Tobacco dependency: counseled on stopping, offered nicotine patch /DVT prophylaxis: sq heparin Brief History; Patient is a 78 yo man with a history of hypertension and tobacco dependency who presented with AMS, although he complains of bilateral throbbing, intermittent, mild, non radiating bilateral big toe pains and inability to walk for one day. According to the chart and sister herminio Krishnan, he was found in his truck, confused. He apparently vomited on himself and cannot recall of events completely. In the ER, Teleneurology used, not candidate for tPA due to last time known normal is not known. There was report of left facial asymmetry and possible slurred speech per EMS report that has resolved. * CT head without contrast IMPRESSION: No acute CVA, intracranial bleed, or brain mass Chronic appearing lacunar infarct left basal ganglia Cerebrovascular atherosclerosis * pCXR IMPRESSION: No radiographic evidence of definite acute pulmonary disease * MRA neck - right MCA occlusion, MRI brain images got degraded for motion * Carotid u/s unremarkable * 2 D echo - 50-55% Hospitalist Physical GEN: WDWN, NAD, Awake, Alert, Orientated but poor 5 minute recall test HEENT: NCAT, EOMI, PERRL, OP Clear NECK: supple, no adenopathy, no thyromegaly, no JVD CVS/HEART: RRR, normal S1S2, pulses present bilaterally CHEST/LUNGS: CTA B, Symmetrical chest expansion, good air entry bilaterally GI/Abdomen: soft, NTND, good bowel sounds, no guarding or rebound /Bladder: no suprapubic tenderness, no CVA or paraspinal tenderness EXT/Skin: no c/c/e, no obvious rash MSK: FROM x 4 Neuro: CN 2-12 grossly intact, no new focal deficits Psych: calm Subjective Date of service: 12/28/18 Interval history: Patient seen and examined S/p MRI today, no new focal weakness states toe pain improved PT recommended acute rehab Objective - Constitutional Vitals: Vital Signs - 12hr 12/29/18 12/29/18 02:33 10:00 Temperature 98.7 F Respiratory 20 Rate Blood Pressure 176/101 O2 Sat by Pulse 98 Oximetry - Labs CBC & Chem 7: 12/28/18 05:35 12/28/18 05:35
--- NOTE | 2018-12-29 15:16 | Progress Note ---
Subjective Date of service: 12/29/18 Interval history: went over exam and there is no focal weakness alert and ambulatory perhaps some slight level of confusion from ischemic stroke but very minimal Objective - Vital Sign Vital Signs - 12hr 12/29/18 10:00 O2 Sat by Pulse 98 Oximetry - Laboratory Findings CBC and BMP: 12/28/18 05:35 12/28/18 05:35 Abnormal Lab Findings: Abnormal Labs 12/25/18 12/25/18 12/26/18 12:19 12:23 07:57 RBC Hgb 15.4 H Hct MCV 95 H MCH 33 H MCHC 35 H [place] % (Auto) 7.5 H Chloride BUN 22 H Glucose 124 H POC Glucose LDL Cholesterol Direct 12/26/18 12/26/18 12/27/18 07:57 22:37 05:53 RBC Hgb 16.1 H Hct 46.9 H MCV MCH MCHC [place] % (Auto) Chloride BUN 21 H Glucose POC Glucose 68 L LDL Cholesterol Direct 137 H 12/27/18 12/28/18 12/28/18 05:53 05:35 05:35 RBC 5.04 H Hgb 15.9 H Hct 47.8 H MCV 95 H MCH MCHC [place] % (Auto) Chloride 97.0 L BUN Glucose 104 H 102 H POC Glucose LDL Cholesterol Direct
== END 2018-12-29 17:00 | disposition home or self-care (01) | DRG 64 ==
LOC: ED 12:04 → 3A 15:16 → 2B-ACE 17:45
PROVIDERS: ADMIT Internal Medicine; ATTEND Internal Medicine
DX: I63.9 Cerebral infarction, unspecified (principal); N17.0 Acute kidney failure with tubular necrosis; G93.49 Other encephalopathy; F17.210 Nicotine dependence, cigarettes, uncomplicated; Z60.2 Problems related to living alone; M10.9 Gout, unspecified; I10 Essential (primary) hypertension; E78.5 Hyperlipidemia, unspecified; Z96.652 Presence of left artificial knee joint; Z82.49 Family history of ischemic heart disease and other diseases of the circulatory system; Z71.6 Tobacco abuse counseling
CPT/HCPCS: 36415; 70450; 70544; 70551; 71045; 80048; 80061; 82962; 84484; 85025; 85027; 85610; 85670; 93005; 93010; 93306; 93880; 99406; G0378; A9270-GY; G0515-GN; J1644; J2060; J2405

== ENCOUNTER 2020-07-16 07:54 | Emergency (ER) | payer MEDICARE ==
--- NOTE | 2020-07-16 09:10 | Vascular Lab Report ---
VL venous duplex LE RT INDICATION / CLINICAL INFORMATION: right leg swelling. COMPARISON: None available. FINDINGS: No evidence of deep vein thrombosis. Incidentally noted is thrombus in superficial veins around the right knee. IMPRESSION: 1. Negative for deep vein thrombosis. Signer Name: Damian Selby MD Signed: 07/16/2020 9:06 AM Workstation Name: [id number]
[2020-07-16 09:25] VITALS: BP 115/74
--- NOTE | 2020-07-16 09:51 | Emergency Department Report ---
ED Extremity Problem HPI - General Chief complaint: Extremity Problem,Nontraumatic Stated complaint: RT LEG SWOLLEN Time Seen by Provider: 07/16/20 09:38 Source: patient Mode of arrival: Ambulatory Limitations: No Limitations - History of Present Illness Initial comments: 80-year-old male with a past medical history of his previous CVA, hypertension, and hyperlipidemia compliant with meds presents to the hospital complaints of pain and swelling to medial leg just distal to the right knee. Patient denies injury. Patient complains of pain to the area only with pressure/palpation. Patient can ambulate without difficulty. No complaints of fever, chest pain, recent lower extremity instrumentation/procedure, shortness of breath calf tenderness, history of PE/DVT. As per patient his most recent MAR on record from April 2020 patient is on aspirin and Plavix. He denies smoking Severity scale (0 -10): 0 - Related Data Previous Rx's Medication Instructions Recorded Last Taken Type Famotidine [Pepcid] 20 mg PO BID tablet 12/28/18 Unknown Rx Nicotine [Habitrol] 21 mg TD QDAY patch 12/28/18 Unknown Rx Aspirin EC [Halfprin EC] 81 mg PO QDAY #30 tablet 05/12/20 Unknown Rx AtorvaSTATin [Lipitor] 80 mg PO QHS #60 tablet 05/12/20 Unknown Rx Clopidogrel [Plavix] 75 mg PO QDAY #30 tablet 05/12/20 Unknown Rx Losartan [Cozaar] 100 mg PO QDAY #30 tablet 05/12/20 Unknown Rx amLODIPine 10 mg PO DAILY #30 tablet 05/12/20 Unknown Rx Allergies Allergy/AdvReac Type Severity Reaction Status Date / Time No Known Allergies Allergy Unverified 12/25/18 12:06 ED Review of Systems ROS: Stated complaint: RT LEG SWOLLEN Other details as noted in HPI Comment: All other systems reviewed and negative ED Past Medical Hx - Past Medical History Previous Medical History?: Yes Hx Hypertension: Yes Hx CVA: Yes Additional medical history: Hyperlipidema - Social History Smoking Status: Current Some Day Smoker - Medications Home Medications: Home Medications Medication Instructions Recorded Confirmed Last Taken Type Famotidine [Pepcid] 20 mg PO BID tablet 12/28/18 05/12/20 Unknown Rx Nicotine [Habitrol] 21 mg TD QDAY patch 12/28/18 05/12/20 Unknown Rx Aspirin EC [Halfprin EC] 81 mg PO QDAY #30 tablet 05/12/20 Unknown Rx AtorvaSTATin [Lipitor] 80 mg PO QHS #60 tablet 05/12/20 Unknown Rx Clopidogrel [Plavix] 75 mg PO QDAY #30 tablet 05/12/20 Unknown Rx Losartan [Cozaar] 100 mg PO QDAY #30 tablet 05/12/20 Unknown Rx amLODIPine 10 mg PO DAILY #30 tablet 05/12/20 Unknown Rx ED Physical Exam - General Limitations: No Limitations - Other Other exam information: General: No acute distress Head: Atraumatic Eyes: normal appearance ENT: Moist mucous membranes Neck: Normal appearance, no midline tenderness Chest: Clear to auscultation bilaterally CV: Regular rate and rhythm Abdomen: Soft, normal bowel sounds, nontender, nondistended, no rebound or guarding Back: Normal inspection Extremity: Patient has dilated veins in the bilateral lower extremities right greater than left specifically at the right medial lower leg just distal to the knee. Mild tenderness to palpation of this area. No calf tenderness, warmth, or erythema. Neuro: Alert O x 3, no facial asymmetry, speech clear, no gross motor sensory deficit Psych: Appropriate behavior Skin: No rash ED Course Vital Signs 07/16/20 07/16/20 07:59 09:18 Temperature 98.1 F Pulse Rate 90 93 H Respiratory 18 17 Rate Blood Pressure 129/69 Blood Pressure 115/74 [Left] O2 Sat by Pulse 98 99 Oximetry - Consultations Consultation #1: 07/16/20 10:22 Awaiting callback from vascular physician who paged at 9:48a. pt want to leave the department. ED Medical Decision Making - Radiology Data Radiology results: report reviewed VL venous duplex LE RT INDICATION / CLINICAL INFORMATION: right leg swelling. COMPARISON: None available. FINDINGS: No evidence of deep vein thrombosis. Incidentally noted is thrombus in superficial veins around the right knee. IMPRESSION: 1. Negative for deep vein thrombosis. As per psychiatric technician assistant report patient has a SVT greater saphenous vein at the level of the knee - Medical Decision Making Vascular surgeon patient patient went to leave prior to their call back. Patient is already on aspirin and Plavix. Patient had a distal superficial clot and therefore will be treated with warm compress and and NSAIDs as needed Critical Care Time: No Critical care attestation.: If time is entered above; I have spent that time in minutes in the direct care of this critically ill patient, excluding procedure time. ED Disposition Clinical Impression: Acute superficial venous thrombosis of right lower extremity Disposition: DC-01 TO HOME OR SELFCARE Is pt being admited?: No Does the pt Need Aspirin: No Condition: Stable Instructions: Superficial Thrombophlebitis (ED) Additional Instructions: Continue your current medications as prescribed (including Aspirin and Plavix). Take Motrin as needed for pain. Make sure you take the Motrin with food. Use warm compresses to help with swelling to the area. Keep leg elevated. Follow- up with your doctor or doctor/clinic provided. Return if symptoms worsen as indicated by your discharge instructions. Referrals: PRIMARY CAREMD [Primary Care Provider] - 3-5 Days KATIE REAVES MD [Staff Physician] - 3-5 Days (Vascular doctor) Time of Disposition: 10:26
== END 2020-07-16 10:45 | disposition home or self-care (01) ==
LOC: ED 07:54
DX: I82.811 Embolism and thrombosis of superficial veins of right lower extremity (principal); I10 Essential (primary) hypertension; E78.5 Hyperlipidemia, unspecified; F17.200 Nicotine dependence, unspecified, uncomplicated; Z86.73 Personal history of transient ischemic attack (TIA), and cerebral infarction without residual deficits; Z79.899 Other long term (current) drug therapy